=== PATIENT | female | born 1995 | race Caucasian/White ===

== ENCOUNTER 2021-09-08 10:01 | Emergency (ER) | payer OTHER, SELFPAY ==
--- NOTE | ~2021-09-08 | XR_ITS ---
EXAMINATION: XR chest 2V EXAM DATE: 09/08/2021 10:28 INDICATION: Cough, lower lung sounds diminished. TECHNIQUE: Frontal and lateral projections of the chest obtained and reviewed. There is no prior spencer dy for comparison. FINDINGS: There is right midlung zone airspace disease probably pneumonia. Difficult to exclude some ill-defined airspace disease in other locations. No pneumothorax. No pleural effusion. Cardiomediast inal silhouette is normal. There are no osseous abnormalities identified. IMPRESSION: Right midlung zone pneumonia. Reviewed, dictated and finalized at location [facility]
--- NOTE | 2021-09-08 10:05 | ED.URI ---
HPI - URI/Sore Throat General Chief Complaint: Upper Respiratory Infection Stated Complaint: congestion,headache,pain in back when breathing Time Seen by Provider: 09/08/21 10:10 Source: patient and RN notes reviewed History of Present Illness HPI Narrative: Patient is a 25-year-old female who presents the urgent care with complaints of congestion, headache and back pain with deep breathing. Patient states her symptoms started approximately 8 days ago and she has been taking ibuprofen intermittently for her symptoms. Patient states that she has been Covid vaccinated and denies of any recent Covid exposures. Patient denies of any fevers but states she has had body aches, chills and sweats. No other acute complaints. No acute distress noted. Patient read the plan of care. Some parts of this dictation were generated by voice recognition software and may contain typographical and/or grammatical inaccuracies. Related Data Allergies Allergy/AdvReac Type Severity Reaction Status Date / Time ibuprofen Allergy Unknown Nausea and Verified 09/08/21 10:21 Vomiting Review of Systems Review of Systems: CONSTITUTIONAL: Reports of chills, sweats, fatigue EYES: Denies visual changes, redness, or discharge. ENT: Reports of postnasal drainage, sinus congestion and intermittent sore throat CARDIOVASCULAR: Denies chest pain, palpitations, or edema. RESPIRATORY: Denies cough or dyspnea. Ports of pain with deep breathing GASTROINTESTINAL: Denies abdominal pain, nausea, vomiting, or diarrhea. GENITOURINARY: Denies dysuria or hematuria. SKIN: Denies rash or itching. MUSCULOSKELETAL: Denies back pain, joint pain. Reports of body aches NEUROLOGIC: Reports of headache All other systems reviewed are negative, except as documented in HPI. PMFSH Comments At the time of my signature, I reviewed and agree with the nursing past medical, surgical, social, and family history. There is no relevant family history pertinent to the patient complaint. Exam Narrative: GENERAL: This is a well-nourished, well-developed patient, in no apparent distress. HEAD: normocephalic, atraumatic. EYES: PERRL. Sclera clear/white. Vision is grossly intact. EARS: External ears normal, auditory canals clear and without drainage, TMs normal without perforation. Hearing grossly intact. NOSE: External nose normal with no obvious nasal discharge, nares without redness, clear to yellow rhinorrhea. THROAT: Mucous membranes moist, posterior pharynx clear. Moderate postnasal drainage NECK: Neck supple CARDIOVASCULAR: Regular rate and rhythm without murmurs, gallops, or rubs. RESPIRATORY: Clear to auscultation. Diminished bibasilar. No wheezes, rales, or rhonchi. GASTROINTESTINAL: Abdomen soft, non-tender, nondistended. Bowel sounds are active. No hepato-splenomegaly, or palpable masses. No guarding. SKIN: warm, intact with no suspicious lesions or rash, good texture and turgor. NEURO: awake, alert, and oriented to person, place and time. There were no obvious focal neurologic abnormalities. EXTREMITIES: No clubbing, cyanosis, or edema. Course Vital Signs Vital signs: Vital Signs Temperature 98.1 F 09/08/21 10:17 Pulse Rate 89 09/08/21 10:17 Respiratory Rate 18 09/08/21 10:17 Blood Pressure 120/78 09/08/21 10:17 Pulse Oximetry 99 09/08/21 10:17 Temperature 98.1 F 09/08/21 10:17 Pulse Rate 89 09/08/21 10:17 Respiratory Rate 18 09/08/21 10:17 Blood Pressure 120/78 09/08/21 10:17 Pulse Oximetry 99 09/08/21 10:17 Reviewed MDM - URI/Sore Throat MDM Narrative Medical decision making narrative: Reviewed lab results with the patient. She is aware that flu swab was negative. Reviewed chest x-ray with the patient. She is aware that chest x-ray was positive for right midlung pneumonia. Advised the patient to complete the oral antibiotic regimen as prescribed. Complete the steroid regimen as prescribed. Be sure to eat and drink with the medication.
[2021-09-08 10:17] VITALS: BP 120/78; PULSE 89; RESP 18; TEMP 36.7; O2SAT 99
== END 2021-09-08 11:04 | disposition home or self-care (01) ==
PROVIDERS: Emergency Provider Nurse Practitioner Family
DX: J18.9 Pneumonia, unspecified organism (principal)
CPT/HCPCS: 71046; 87804; 99213; G0463